=== PATIENT | male | born 1980 | race Caucasian/White ===

== ENCOUNTER → 2016-11-28 | Outpatient (CLI) | payer OTHER ==
[~2016-11-28] MED LIST: BACLOFEN10 MG PO; CLEOCIN HCL150 MG PO; LORTAB 7.51 TAB DOB; LORTAB 7.51 TAB PO; NO MEDICATIONS; TAMIFLU75 M1 DOB; VOLTAREN50 MG PO
--- NOTE | ~2016-11-28 | US5 ---
[facility] A Service of [facility] & [facility] RADIOLOGY TEXT RESULTS PATIENT: JEFFREY COLLINS LOCATION: [facility] : [birth year] UNIT #: [id number] AGE: [address]: Carey Ballesteros MD SEX: M ORDER DR: [id number] [facility] [address] [place], [place] [address] [id number] O MR#: [id number] Acc #: [id number] NAME: JEFFREY COLLINS : 1980 SEX: M STUDY DATE/TIME: 11/28/2016 10:33 UNIT: [facility] ROOM: STUDY DESCRIPTION: US Abdominal Complete Attending Physician: Carey Ballesteros M.D. Referring Physician: Carey Ballesteros M.D. Ordering Physician: Carey Ballesteros M.D. Primary Care Physician: Natalie Hoyos M.D. MEDICAL IMAGING REPORT This report is preliminary unless electronic signature is present EXAM Complete abdominal ultrasound DATE 11/28/2016 HISTORY Abnormal elevated liver function test. Right quadrant abdominal tenderness for 2 months. Previous appendectomy. COMPARISON CT abdomen and pelvis with contrast 03/22/2013. FINDINGS Portions of the pancreas are obscured by bowel gas but the visualized pancreas appears unremarkable. No ascites is visualized. The liver demonstrates a coarsened echotexture with diminished acoustic transmission suggesting features of hepatic steatosis. No focal liver lesion is identified. The abdominal aorta is of normal caliber measuring up to 1.8 cm in its proximal to mid segments with normal color and spectral Doppler flow. Intrahepatic IVC demonstrates normal flow. Common bile duct caliber is normal, 4 mm. No intrahepatic biliary ductal dilation is seen. Gallbladder is free of shadowing stone, sludge, wall thickening or pericholecystic fluid. Right kidney measures 12.5 cm in length without focal cortical lesion, shadowing stone or hydronephrosis. Liver size is within normal limits, 15 cm in length. Spleen size is normal measuring 11.3 cm in length. The left kidney measures 13.3 cm in length without focal cortical lesion, shadowing stone or hydronephrosis. IMPRESSION 1. Diffusely coarsened hepatic echotexture is nonspecific but suggest features of hepatic steatosis. Similar features can be seen on the 2013 CT abdomen. [facility] A Service of [facility] RADIOLOGY TEXT RESULTS PATIENT: JEFFREY COLLINS LOCATION: [place] : [birth year] UNIT #: [id number] AGE: [address]: Carey Ballesteros MD SEX: M ORDER DR: 2. No focal liver lesions are identified. 3. Normal appearance of the gallbladder. No biliary dilation. 4. Cyst within left upper renal pole measuring nearly 1.5 cm, corresponds to previous CT abdomen from 2013. This is not included body report. Dictated by... Domenica Lorenzo M.D. THIS IS AN ELECTRONICALLY VERIFIED REPORT Domenica Lorenzo M.D. at 11/30/2016 9:[address] [facility]/cash TD: 11/28/2016 16:54 JOB #: [id number] MEDICAL IMAGING REPORT Page 1 of 1 COPY
== END | disposition home or self-care (01) ==
LOC: CGUS 09:47
DX: R10.811 Right upper quadrant abdominal tenderness (principal); R74.0 Nonspecific elevation of levels of transaminase and lactic acid dehydrogenase [LDH]; N28.1 Cyst of kidney, acquired
CPT/HCPCS: 76700

== ENCOUNTER → 2017-01-21 | Outpatient (CLI) | payer OTHER ==
--- NOTE | ~2017-01-21 | MR112 ---
[facility] A Service of [facility] & [facility] RADIOLOGY TEXT RESULTS PATIENT: JEFFREY COLLINS LOCATION: [facility] : [birth year] UNIT #: [id number] AGE: [address]: Randal Cabrera MD SEX: M ORDER DR: [id number] [place] [id number] O MR#: [id number] Acc #: [id number] NAME: JEFRFEY COLLINS : 1980 SEX: M STUDY DATE/TIME: 01/21/2017 10:41 UNIT: [facility] ROOM: STUDY DESCRIPTION: MR Lumbar WWo Contrast Attending Physician: Randal Cabrera M.D. Referring Physician: Randal Cabrera M.D. Ordering Physician: Randal Cabrera M.D. Primary Care Physician: Natalie Hoyos M.D. MRI CENTER REPORT This report is preliminary unless electronic signature is present. EXAM MRI if the lumbar spine with and without. HISTORY Lumbar surgery in December of 2008. Patient complains of continued low back pain with bilateral leg pain, right greater than left for 8 years. No history of cancer. FINDINGS MRI of the lumbar spine performed prior to and following intravenous administration of 20 mL of MultiHance. There is a comparison study from 02/13/2014. There is about 3-4 mm of degenerative retrolisthesis of L5 on S1 secondary to loss of intervertebral disc height. The 5-1 disc is desiccated with [id number]-bv-[id number] loss of disc height. Bone marrow signal intensity is unremarkable. The conus medullaris terminates at L1-2 and is normal. At L1-2, there is some mild concentric disc bulge and mild left-sided facet hypertrophy. There is no canal stenosis. There is no foraminal impingement. At L2-3, there is mild facet degenerative change bilaterally. No canal or foraminal impingement. At L3-4, mild bilateral facet hypertrophy. No canal or foraminal impingement. L4-5, mild bilateral facet degenerative change, mild broad posterior disc bulge but no canal stenosis or foraminal impingement. L5-S1, prior surgery with posterior decompression. Dwes-eo-qnmbqoug left, mild right-side facet degenerative change. There is abnormal tissue right STS. [facility] A Service of [facility] RADIOLOGY TEXT RESULTS PATIENT: JEFFREY COLLINS LOCATION: [facility] : [birth year] UNIT #: [id number] AGE: [address]: Randal Cabrera MD SEX: M ORDER DR: paramedian location contiguous with the disc and filling the right lateral recess. A small portion of this tissue enhances and the appearance is most consistent with a recurrent or residual disc extrusion. The nonenhancing component of tissue measures about 1 cm AP dimension, 0.9 cm SI dimension and 2.1 cm ML dimension. It is mildly increased in size from the study of 02/13/2014. There is mass effect in particular on the expected location of the right S1 root and the right lateral recess and there is eszl-fc-zkmctpbg central canal stenosis. Also rzso-xf-ynantpot right and mild left inferior foraminal narrowing. IMPRESSION There is prior posterior decompression at L5-S1. Abnormal tissue seen filling the right lateral recess contiguous with the disc with only marginal enhancement. Majority of this tissue is consistent with residual or recurrent disc extrusion with only a small amount of granulation tissue at the margins. It results in mass effect on the expected location of the right S1 root and the right lateral recess and there is rgaz-zd-lkhgujjr canal stenosis with some displacement of the thecal sac towards the left side posterolaterally. See msoyt-he-ubjnq discussion above. Mild worsening in the appearance of the disc material at the L5-S1 level since 2013. Dictated by... Sonia Gu M.D. THIS IS AN ELECTRONICALLY VERIFIED REPORT Sonia Gu M.D. at 01/22/2017 5:25 PM [facility]/jam TD: 01/22/2017 14:03 JOB #: [id number] MRI CENTER REPORT Page 1 of 1
== END | disposition home or self-care (01) ==
LOC: SMRI 10:20
DX: M51.16 Intervertebral disc disorders with radiculopathy, lumbar region (principal); M48.06 Spinal stenosis, lumbar region; M43.16 Spondylolisthesis, lumbar region; M47.26 Other spondylosis with radiculopathy, lumbar region; Z98.890 Other specified postprocedural states
CPT/HCPCS: 72158; A9581

== ENCOUNTER → 2017-01-23 | Outpatient (CLI) | payer OTHER ==
--- NOTE | ~2017-01-23 | CR186 ---
[facility] A Service of [facility] / [facility] RADIOLOGY TEXT RESULTS PATIENT: JEFFREY COLLINS LOCATION: [facility] : [birth year] UNIT #: [id number] AGE: [address]: LATRICE BARBER APRN SEX: M ORDER DR: [id number] [place] [id number] O MR#: [id number] Acc #: [id number] NAME: JEFFREY COLLINS : 1980 SEX: M STUDY DATE/TIME: 01/23/2017 12:35 UNIT: [facility] ROOM: STUDY DESCRIPTION: CR Lumbar Spine W Bend Min 6 V Attending Physician: Latrice Barber A.P.R.N. Referring Physician: Latrice Barber A.P.R.N. Ordering Physician: Latrice Barber A.P.R.N. Primary Care Physician: Natalie Hoyos M.D. MEDICAL IMAGING REPORT This report is preliminary unless electronic signature is present. EXAM Lumbar spine 4 views HISTORY Previous back surgery. Chronic back pain since 2006. Evaluate for stability. TECHNIQUE AP and lateral views of the lumbar spine were obtained with lateral views obtained in flexion, neutral and extension. FINDINGS There is a slight degenerative retrolisthesis of L5-S1 with disc space narrowing and a posterior osteophyte. It does not change between flexion and extension. Alignment elsewhere is unremarkable. Mild degenerative disc disease is seen at L3-4 and L4-5. There is no evidence of fracture or pars defect. IMPRESSION Degenerative disc disease at the lower 3 lumbar levels with a degenerative retrolisthesis of L5-S1. No change in alignment from flexion to extension. Dictated by... Major Matias M.D. THIS IS AN ELECTRONICALLY VERIFIED REPORT Major Matias M.D. at 01/24/2017 4:00 PM [facility]/negin TD: 01/24/2017 13:50 [facility] A Service of [facility] / [facility] RADIOLOGY TEXT RESULTS PATIENT: JEFFREY COLLINS LOCATION: [facility] : [birth year] UNIT #: [id number] AGE: [address]: LARTICE BARBER APRN SEX: M ORDER DR: JAMILAH #: [id number] MEDICAL IMAGING REPORT Page 1 of 1
== END | disposition home or self-care (01) ==
LOC: SRAD 12:18
DX: M51.16 Intervertebral disc disorders with radiculopathy, lumbar region (principal); M43.16 Spondylolisthesis, lumbar region; Z98.890 Other specified postprocedural states
CPT/HCPCS: 72114